=== PATIENT | female | born 1940 | race Caucasian/White ===

== ENCOUNTER 2016-11-24 08:41 | Day surgery (SDC) | payer MEDICARE, MEDICAID ==
[~2016-11-24] VITALS: Ht 162.6 cm; Wt 53.0 kg
--- NOTE | 2016-11-24 07:44 | PCM.HPANE ---
Patient Data Surgeon Admitting Provider: Attending Provider:Tomas Metz MD Primary Care Physician:Cata Muhammad Other Provider:Sea Drummond Anesthesia Reason for Visit Screening, Chronic Viral Hepatitis C Ht/WT & BMI Body Mass Index Allergies Coded Allergies: codeine (Verified Allergy, Intermediate, Nausea,Vomiting, 11/23/16) Past Anesthesia History Anesthesia History: Positive for:: Abnormal Airway (radiation to larynx 2004; not symptomatic nw) Diabetes History Hx Diabetes?: No MRSA MRSA: No Medications Hypertension Medication: No Home Meds Incl Beta Alfred: No Reported Medications Quetiapine Fumarate 100 Mg Lylaov440 Mg PO HS Ref 0 11/23/16 Levothyroxine 75 Mcg Yluody07 Mcg PO DAILY Ref 0 11/23/16 Salsalate 500 Mg Lhgrko203 Mg PO PM 1-2 tablets 02/07/14 [ProAir HFA] No Conflict Check90 Mcg INH as directed by physician 02/07/14 Nabumetone 750 Mg Kayvhb269 Mg PO BID 02/07/14 Gabapentin 400 Mg Kshhogc960 Mg PO HS 02/07/14 Clonazepam 0.5 Mg Tab0.5 Mg PO BID PRN For Anxiety 02/07/14 Cilostazol 100 Mg Pinvkw533 Mg PO BID 30 Days 1/2hr before or 2 hr after breakfast and dinner 02/07/14 [Atrovent HFA] No Conflict Check17 Mcg INH 02/07/14 Amlodipine 5 Mg Tablet5 Mg PO DAILY 02/07/14 Discontinued Reported Medications Spironolactone 25 Mg Zrmlfo45 Mg PO DAILY #30 TABLET Ref 0 11/23/16 Furosemide 40 Mg Vsyyau11 Mg PO DAILY 11/23/16 Multivits-Min/FA/Lycopene/Lut (Centrum Silver Tablet)1 Each Tablet1 Each PO DAILY 02/07/14 Simvastatin 20 Mg Dxjerw59 Mg PO HS 30 Days Ref 0 02/07/14 Esomeprazole Magnesium (Nexium)40 Mg Capsule.dr40 Mg PO DAILY 02/07/14 History History of ENT Problems?: No HEENT History: Positive for:: Abnormal Airway Cataracts (SURGERY BOTH EYES) Denies:: Difficult Intubation Hx of Heart Problems?: Yes Cardiovascular History: Positive for:: Hypertension Hx of Respiratory Problem?: Yes Respiratory History: Positive for:: COPD (USES INHALERS) Hx Neurologic Problems?: Yes Neurological History: Positive for:: CVA (TIA'S) Hx of GI Problems?: Yes Gastrointestinal History: Positive for:: Gastroesphageal Reflux Hx of Problems?: Yes Genitourinary History: Positive for:: Urinary Tract Infection Hx Musculoskeletal Problems?: Yes Hx of Psycho/Social Problems?: Yes Psycho Social History: Positive for:: Anxiety Hx Surgeries?: Yes (LEFT UPPER LOBE LOBECTOMY) Hx Any Other Health Problems?: Yes Other History: Positive for:: Cancer (LARYNX, WITH CHEMOTHERAPY AND RADIATION) History Blood Transfusions: Denies:: Blood Transfusions Hx Alcohol Use: NoHave You Smoked inLast 12 mo: Yes Stop/Bang Treated for Sleep Apnea?: No Do You Have a CPAP Machine?: No Risk Assessment Category Category 1A: Patient has history of documented sleep apnea, and HAS NOT received any narcotic, sedative or anesthesia administration during this stay. Category 1B: Patient has history of documented sleep apnea, and HAS received any narcotic , sedative or anesthesia administration during this stay Category 2: Patient has SUSPECTED Obstructive Sleep Apnea, and HAS received any narcotic , sedative or anesthesia administration during this stay. Category 3: Patient has SUSPECTED Obstructive Sleep Apnea and HAS NOT received narcotic, sedative or anesthesia administration during this stay. Category 4: Outpatient in Procedural Areas with known sleep apnea or who screen positive for High Risk via the STOP/BANG questionnaire. Exam Exam General Appearance: Alert, Oriented X3, Cooperative, No Acute Distress HEENT/AIRWAY: MP 2 Lungs: Clear to Auscultation, Normal Air Movement Heart: Exam Unremarkable, Regular Rate/Rhythm, No Murmurs/Rubs/Gallops Plan Impression Patient chart reviewed, patient interviewed and anesthestic plan with risks, benefits, and alternatives discussed, and informed consent obtained. ASA Physical Status: ASA3 Severe Disease Anesthetic Plan: MAC Bene/Risks/Altern/Consents: Yes HP Complete Prior to Induction: Yes Abbe Gutierrez MD Nov 24, 2016 07:44
[~2016-11-24 08:41] MED LIST: AMLO5TAB2 PO; ATROVENT INH; CILO100T2 PO; ESOM40CA41 PO; FURO40TA4 PO; GABA-504 PO; KLO5T PO; LEVO75TA4 PO; Lactated Ringer's 1,000 ML IV ONE; MULT-1073 PO; NABU750T PO; ProAir HFA INH; QUET100T69 PO; SIMV20TA4 PO; SPIR25TA3 PO; [UNRECOGNIZED DRUG - CODE] PO
[2016-11-24] MEDS ORDERED: fentaNYL-PF 50 mCg/mL 2 mL Inj ONE (08:42)
[2016-11-24] MEDS ORDERED: Dexamethasone 4 mg/mL Inj ONE (08:42)
[2016-11-24] MEDS ORDERED: Propofol 10,000 mCg/mL 20 mL Inj ONE (08:42)
[2016-11-24] MEDS ORDERED: Ondansetron 2 mg/mL 2 mL Inj ONE (08:42)
[2016-11-24] MEDS ORDERED: Ketamine 10 mg/mL 20 mL Inj ONE (08:42)
[2016-11-24 09:05] VITALS: BP 139/83; PULSE 61; RESP 16; O2SAT 98
[2016-11-24] MEDS ORDERED: Lactated Ringer's 1,000 ML IV SCH (09:37)
[2016-11-24] MEDS ORDERED: MetoCLOpramide 5 mg/mL 2 mL Inj IVPUSH PRN (09:40)
[2016-11-24] MEDS ORDERED: Ondansetron 2 mg/mL 2 mL Inj IVPUSH PRN (09:40)
[2016-11-24 10:33] VITALS: BP 104/59; PULSE 62; RESP 16; O2SAT 95
[2016-11-24 10:43] VITALS: BP 115/68; PULSE 63; RESP 16; O2SAT 93
[2016-11-24 10:53] VITALS: BP 137/82; PULSE 67; RESP 16; O2SAT 98
--- NOTE | 2016-11-24 13:06 | PCM.ANEP1 ---
Post Anesthesia Phase 1 PACU Phase 1 Assessment Vital Signs Vital Signs Date Time Temp Pulse Resp B/P Pulse Ox O2 Delivery O2 Flow Rate FiO2 11/24/16 10:53 67 16 137/82 98 Room Air 11/24/16 10:43 63 16 115/68 93 Room Air 11/24/16 10:33 62 16 104/59 95 Room Air 11/24/16 09:05 36.1 61 16 139/83 98 Room Air Anesthetic Administered: MAC Level of Alertness: Awake, talking WYMAN's with Equal Strength: Yes Pain: No Nausea or Vomiting: No Oxygen Delivery: Nasal Cannula Lungs: Clear to Auscultation, Normal Air Movement Dermatome Level: Full Sensation Abbe Gutierrez MD Nov 24, 2016 13:06
--- NOTE | 2016-11-24 13:12 | PCM.ANEP2 ---
Post Anesthesia Evaluation ASA/CMS Post Anesthesia VS in Patient's Normal Range?: Yes Resp Stable; Airway Patent?: Yes CV Function & Hydration Stable: Yes Mental Status Recovered?: Yes Pain control Satisfactory?: Yes N/V Control Satisfactory?: Yes Abbe Gutierrez MD Nov 24, 2016 13:12
--- NOTE | 2016-11-24 15:01 | ENDO ---
[address] [address] ENDOSCOPY PROCEDURE PATIENT: NICOLLE TRUJILLO : 1940 MR#: [id number] ADMIT: 11/24/2016 JOB ID: [id number] PRIMARY PROVIDER: Cata Muhammad PA-C PROCEDURE: Esophagogastroduodenoscopy with biopsy and a colonoscopy with cold forceps polypectomy and biopsy. INDICATIONS: A 76-year-old female with cirrhosis, who reports for variceal screening. She also reports for colon cancer screening. EQUIPMENT: GIF-H180 and a PCF-H190L. SEDATION: Monitored anesthesia as provided by Dr. Abbe Gutierrez. COMPLICATIONS: None identified. BOWEL PREPARATION: Fair. Adequate exam. PROCEDURE INFORMATION: After the risks and benefits were explained, written and verbal informed consent was obtained, the patient was brought into the endoscopy suite and placed into the left lateral decubitus position. Sedation was achieved using the above-stated medications with the addition of oxygen via nasal cannula. The scope was introduced into the mouth through the bite block and advanced to the second portion of the duodenum. The scope was slowly withdrawn to carefully examine the mucosa for any defects or lesions. Retroflexed views were accomplished in the stomach, and the stomach was decompressed. The scope removed from the patient who tolerated the procedure well. The patient was then turned around. A digital rectal examination accomplished. Moderate internal hemorrhoids were noted. The scope was then introduced into the rectum and advanced under direct visualization to the cecum as identified by the appendiceal orifice and ileocecal valve. The scope was slowly withdrawn to carefully examine the mucosa for any defects or lesions. Retroflexed views were avoided in the rectum. Multiple direct views were made through the dentate line for exclusion of pathology. The colon was decompressed. The scope removed from the patient who tolerated the procedure well. FINDINGS: 1. Duodenum: No pathology from the bulb through to the second portion. 2. Stomach: The patient had no mass lesions. No outlet obstruction. Moderate diffuse portal hypertensive gastropathy, but additionally, there were some scattered mild erosive and inflammatory features identified. I therefore took a couple of superficial biopsies for exclusion of Helicobacter or any other underlying histopathology. Retroflexed views of the LES disclosed a small sliding hiatal hernia. No gastric varices identified. 3. Esophagus: The squamocolumnar junction correlated with the top of the gastric folds. No acute erosive changes. No strictures. No mass lesions. In the 3 o'clock column, there was perhaps grade 1 varices seen distally without any high-risk areas or stigmata of recent bleeding. 4. Colon: In the right colon, there were three polyps, very small, removed. The largest was perhaps 4 mm. Cold forceps were employed. One of these was in the cecum and two in the region of the ascending colon. The patient had moderate internal hemorrhoids. There was one small polypoid lesion right at the dentate line, if not a little distal to it in the anal rectum. Was not sure if this was simply hyperplastic mucosa or other. We therefore took a small biopsy of this perhaps 5 mm polyp. There were no hemorrhagic complications. ENDOSCOPIC DIAGNOSIS: 1. Small sliding hiatal hernia. 2. Grade 1 distal esophageal varices. 3. Portal hypertensive and erosive gastropathy. 4. Colon polyps. 5. Hemorrhoids. 6. Anorectal small polyp. RECOMMENDATIONS: 1. Await histopathology. 2. Repeat EGD in two years with anesthesia. 3. If all polyps are confirmed adenomatous, repeat colonoscopy in three years. 4. However, if the polyp in the anal rectum demonstrates any concerning findings, then early surveillance for complete removal will be required in the next few months.
--- NOTE | 2016-11-25 11:12 | PATH ---
SURGICAL PATHOLOGY Attending Physician:Lela Simental CASE STATUS: Signed Out PATIENT NAME: NICOLLE TRUJILLO PID: [id number] : 1940 DATE COLLECTED:11/24/2016 18:14 SPECIMEN: 1: Gastric, Biopsy 2: Colon, Biopsy 3: Rectum, Biopsy CLINICAL HISTORY: 1). GASTRIC BIOPSY 2). COLON POLYPS X3 3). ANO-RECTUM BIOPSY FINAL DIAGNOSIS: 1.GASTRIC BIOPSIES: SUPERFICIAL FRAGMENTS OF GASTRIC MUCOSA OF PROBABLE ANTRAL ORIGIN. Negative for significant inflammation. Negative for evidence of Helicobacter. Negative for intestinal metaplasia. Negative for dysplasia and malignancy. 2.COLON POLYPS: TUBULAR ADENOMA INVOLVING ALL THREE BIOPSY FRAGMENTS. 3.ANO-RECTUM BIOPSY: SQUAMOUS EPITHELIUM CONSISTENT WITH ANAL ORIGIN WITH CHANGES OF LOW-GRADE SQUAMOUS INTRAEPITHELIAL LESION (AIN 1). NO COLON MUCOSA IDENTIFIED. ICD10 CODE D12.6 GROSS DESCRIPTION: The specimen is received in three formalin filled containers labeled with the patient's name. 1). The specimen is sublabeled "gastric" and consists of 2 portions of tissue which aggregate to 0.2 x 0.2 x 0.1 CM. The specimen is entirely submitted in cassette 1A. 2). The specimen is sublabeled "colon polyps x3" and consists of 3 portions of tissue which aggregate to 0.3 x 0.3 x 0.3 CM. The specimen is entirely submitted in cassette 2A. 3). The specimen is sublabeled "ano- rectum" and consists of a 0.2 x 0.2 x 0.2 CM portion of tissue which is entirely submitted in cassette 3A. 11/24/2016 DAC MICRO DESCRIPTION: See diagnosis. ICD-9 CODES: CPT CODES: 1: 66491 2: 37294 3: 04025 Electronically Signed Out Tomas Gardner MD [facility] [address], [place] [address] Technical component performed at [facility], [facility] [address], [place], [address]
[2016-12-31] MEDS ORDERED: LICO1POW MC (17:51)
[2016-12-31] MEDS ORDERED: MILK200C4 PO (17:51)
[2016-12-31] MEDS ORDERED: CICL34.6 TP (17:51)
[2016-12-31] MEDS ORDERED: METO25TA6 PO (17:51)
== END 2016-11-24 23:59 | disposition home or self-care (01) ==
LOC: END 08:41
PROVIDERS: ATTEND Internal Medicine Gastroenterology
DX: Z12.11 Encounter for screening for malignant neoplasm of colon (principal); D12.0 Benign neoplasm of cecum; D12.2 Benign neoplasm of ascending colon; K64.8 Other hemorrhoids; B18.2 Chronic viral hepatitis C; K74.60 Unspecified cirrhosis of liver; K44.9 Diaphragmatic hernia without obstruction or gangrene; I85.10 Secondary esophageal varices without bleeding; K76.6 Portal hypertension; K31.89 Other diseases of stomach and duodenum; F17.210 Nicotine dependence, cigarettes, uncomplicated; Z79.899 Other long term (current) drug therapy
CPT/HCPCS: 43239; 45380; 88305; J1100; J2250; J2405; J3010; J7120

== ENCOUNTER 2016-12-28 00:17 | Day surgery (SDC) | payer MEDICARE, MEDICAID ==
[~2016-12-28 00:17] MED LIST changes: -ESOM40CA41 PO; -FURO40TA4 PO; -Lactated Ringer's 1,000 ML IV ONE; -MULT-1073 PO; -SIMV20TA4 PO; -SPIR25TA3 PO
--- NOTE | 2016-12-28 16:38 | DRSVH ---
PROCEDURE: PHYSICIAN CONSULTATION COMPARISON: [facility], MR, ABDOMEN W&WO CONTRAST, 11/23/2016, 10:55. ID & CHIEF COMPLAINT: Ms. Bustamante is a 76-year-old patient with hepatitis C, cirrhosis, and a recent diagnosis of solitary hepatocellular carcinoma. HISTORY OF PRESENT ILLNESS: The patient presents to discuss locoregional therapy for her solitary les ion of hepatocellular carcinoma within the right lobe of liver. This patient has had long-standing he patitis C and liver cirrhosis. In December of 2015, the patient presented with ascites and what appeared to be multifocal hepatocellular carcinoma throughout the liver. In retrospect, the multiple hypodens e lesions within the liver may have represented regenerative nodules. She reportedly stopped drinking and recovered from her episode of liver failure. CT of the liver dated 10/05/16 demonstrated a hyperv ascular lesion within the right lobe of the liver. This was hyperdense on the following ultrasound, a nd on an MRI dated 11/23/16 was demonstrated to have the characteristic imaging appearance of a solita ry hepatocellular carcinoma. PAST MEDICAL HISTORY: Significant for hepatitis C and cirrhosis. PAST SURGICAL HISTORY: Noncontributory FAMILY HISTORY: The patient lives in [place]. Her daughter is involved in her care and she lives in [place]. SOCIAL HISTORY: The patient has a history of heavy drinking but quit in 2015 after her bout with live r failure. ALLERGIES: Codeine MEDICATIONS: Medication list on file (in PACS documents) and reviewed. FOCUSED PHYSICAL EXAM: Vital signs: Blood pressure: 161/75, heart rate: 78, respiratory rate: 18, oxygen saturation: 98% on room air, temperature: 36.6C IMAGING: MRI dated 11/23/16 demonstrates a solitary hypervascular lesion within hepatic segment VII. O f note, this lesion abuts a tertiary branch of the portal vein which measures approximately 3-4 mm in diameter. This demonstrates washout on the portal venous and delayed phase images. A hepatic hemangi tiffanie is also visualized within hepatic segment VIII. A bedside ultrasound was performed during the clinic in visit to confirm this lesion is accessible to percutaneous ablation. IMPRESSION: In summary, the patient is a pleasant 76-year-old woman with a solitary lesion consistent with hepato cellular carcinoma in the background of cirrhosis and hepatitis C. Today we discussed locoregional th erapies. Specifically, Y. 90 ablation, radiofrequency ablation, and chemoembolization. We also discus sed systemic chemotherapy versus watchful waiting. Given the focality of this lesion and the solitary nature, radiofrequency ablation is recommended. Bedside ultrasound confirmed access ability via perc utaneous approach. We also discussed the risks of this procedure including bleeding, infection, need for emergent procedure surgery, liver failure, and . All the patient's questions and her daughte r's questions have been answered, and the patient wishes to proceed. We will schedule her at her [facility] convenience. These findings were discussed with Dr. Tracey on 12/28/16. Thank you for this interesting consult. Dictated by: Nina Giudry M.D. on 12/28/2016 at 16:22 Approved by: Nina Guidry M.D. on 12/28/2016 at 16:36
[2016-12-31] MEDS ORDERED: METO25TA6 PO (17:51)
[2016-12-31] MEDS ORDERED: LICO1POW MC (17:51)
[2016-12-31] MEDS ORDERED: CICL34.6 TP (17:51)
[2016-12-31] MEDS ORDERED: MILK200C4 PO (17:51)
== END 2016-12-28 23:59 | disposition home or self-care (01) ==
LOC: SOUO 00:17
PROVIDERS: ATTEND Radiology Vascular & Interventional Radiology
DX: Z71.89 Other specified counseling (principal); C22.0 Liver cell carcinoma; B19.20 Unspecified viral hepatitis C without hepatic coma; K74.60 Unspecified cirrhosis of liver

== ENCOUNTER 2017-01-01 01:09 | Day surgery (SDC) | payer MEDICARE, MEDICAID ==
[2017-01-01] VITALS (12 sets, daily range): BP systolic 134–178; BP diastolic 58–89; PULSE 55–62; RESP 14–21; O2SAT 96
[~2017-01-01] VITALS: Ht 162.6 cm; Wt 53.0 kg
[~2017-01-01 01:09] MED LIST changes: -AMLO5TAB2 PO; +CICL34.6 TP; -CILO100T2 PO; -KLO5T PO; +LICO1POW MC; +METO25TA6 PO; +MILK200C4 PO; -NABU750T PO; -[UNRECOGNIZED DRUG - CODE] PO
[2017-01-01] MEDS ORDERED: Ondansetron 2 mg/mL 2 mL Inj ONE (01:10)
[2017-01-01] MEDS ORDERED: 0.9% NaCl + KCl 20 mEq/L 1,000 ML IV ONE (06:30)
[2017-01-01] MEDS ORDERED: CeFAZolin Inj 2,000 MG in Dextrose 5%-Pha MIX 50 ML IV SCH (06:30)
[2017-01-01] MEDS ORDERED: Ondansetron 2 mg/mL 2 mL Inj IVPUSH ONE (06:35)
[2017-01-01 06:50] LABS: BASOPHILS % (AUTO) 0.6 % (0-3); EOSINOPHILS % (AUTO) 1.8 % (0-5); MONOCYTES % (AUTO) 10.4 % (4-12); Mean Corpuscular Hemoglobin 29.9 pg (27.0-35.0); Mean Corpuscular Volume 89.3 fL (81-100); NEUTROPHILS % (AUTO) 61.8 % (40-74); Platelet Count 126 bil/L (150-400)
[2017-01-01 07:07] LABS: INR 1.13 ratio
[2017-01-01] MEDS ORDERED: Heparin 5,000 Units/500 mL NS Premix IV ONE ×2 (07:31→10:12)
[2017-01-01] MEDS ORDERED: 0.9% Sodium Chloride 1,000 ML ONE (07:32)
[2017-01-01] MEDS ORDERED: Heparin 1,000 Unit/mL 10 mL Inj ONE (07:32)
[2017-01-01] MEDS ORDERED: 0.9% Sodium Chloride 0 ML ONE (07:34)
--- NOTE | 2017-01-01 08:51 | PCM.HPANE ---
Patient Data Surgeon Admitting Provider: Attending Provider:Nina Guidry MD Primary Care Physician:Cata Muhammad Other Provider: Reason for Visit Liver Ablation/Rfa Ht/WT & BMI Height (Feet): 5 Height (Inches): 4.00 Weight (Kilograms): 53.000 Body Mass Index 19.95 Allergies Coded Allergies: codeine (Verified Allergy, Intermediate, Nausea,Vomiting, 11/23/16) Past Anesthesia History Anesthesia History: Positive for:: Abnormal Airway, Denies:: Anesthesia Reactions, Difficult Intubation, Fam Anesthesia Reaction , Fam Malignant Hypertherm, Malignant Hyperthermia Diabetes History Hx Diabetes?: No MRSA MRSA: No Medications Reported Medications Milk Thistle Seed Extract (Milk Thistle)200 Mg Oqzdcws702 Mg PO BID 12/31/16 Licorice Root Extract (Licorice Root)1 Gm Gvdzkf943 Mg MC BID 12/31/16 Ciclopirox/Ure/Camph/Menth/Euc (Ciclodan 8% Kit)34.6 Ml Kfrplkvi71.6 Ml TP DAILY 12/31/16 Metoprolol Tartrate 25 Mg Nbxyyl46.5 Mg PO BID 30 Days Ref 0 12/31/16 Quetiapine Fumarate 100 Mg Ngxrhg67 Mg PO HS Ref 0 11/23/16 Levothyroxine 75 Mcg Fvlomv28 Mcg PO DAILY Ref 0 11/23/16 [ProAir HFA] No Conflict Check90 Mcg INH as directed by physician 02/07/14 Gabapentin 400 Mg Egurcct901 Mg PO TID 02/07/14 [Atrovent HFA] No Conflict Check17 Mcg INH 02/07/14 Discontinued Reported Medications Salsalate 500 Mg Vwffwo880 Mg PO PM 1-2 tablets 02/07/14 Nabumetone 750 Mg Xxocpx187 Mg PO BID 02/07/14 Clonazepam 0.5 Mg Tab0.5 Mg PO BID PRN For Anxiety 02/07/14 Cilostazol 100 Mg Rzlqlf370 Mg PO BID 30 Days 1/2hr before or 2 hr after breakfast and dinner 02/07/14 Amlodipine 5 Mg Tablet5 Mg PO DAILY 02/07/14 History History of ENT Problems?: No HEENT History: Positive for:: Abnormal Airway Cataracts (SURGERY BOTH EYES) Dysphagia Hearing Problem (hard of hearing) Denies:: Difficult Intubation Denture Type: Full- Upper Full- Lower Teeth Condition: No Teeth Hx of Heart Problems?: No Cardiovascular History: Positive for:: Hypertension Denies:: AICD Atrial Fibrillation Chest Pain Pacemaker Other History/Comments ROS currently negative Hx of Respiratory Problem?: Yes Respiratory History: Positive for:: Asthma (copd) COPD Cough Pneumonia Denies:: Hemoptysis Tuberculosis Other History/Comment Breathing at baseline, with known COPD and asthma, Daily inhalors, with rare rescue inhalors Hx Neurologic Problems?: Yes Neurological History: Positive for:: CVA (TIA x2) Denies:: Dementia Other History/Comments TIA's (sx "dizzy", last 10 years ago) Hx of GI Problems?: Yes Gastrointestinal History: Positive for:: Liver Disease Other History/Comment Known liver mass here today for ablation; hepatitis C Hx of Problems?: Yes Genitourinary History: Positive for:: Urinary Tract Infection Female Hx: Denies:: Currently Endometriosis Pelvic Inflammatory Problems with Breasts? Hx Musculoskeletal Problems?: Yes Musculoskeletal History: Denies:: Joint Replacement Hx of Psycho/Social Problems?: Yes Psycho Social History: Positive for:: Anxiety Hx Depression Hx Surgeries?: Yes (lobectomy L lung, larynx, oophrectomy,) Hx Any Other Health Problems?: Yes Other History: Positive for:: Cancer (LARYNX, WITH CHEMOTHERAPY AND RADIATION and lobeectomy) History Blood Transfusions: Positive for:: Accept Blood Products? Denies:: Blood Transfuse Reaction Blood Transfusions Hx Diabetes: No Hx Alcohol Use: NoHx Substance Use: NoHave You Smoked inLast 12 mo: Yes Approx How Many Cigarettes/day: 1/2 pack a day Stop/Bang Treated for Sleep Apnea?: No Do You Have a CPAP Machine?: No Risk Assessment Category Category 1A: Patient has history of documented sleep apnea, and HAS NOT received any narcotic, sedative or anesthesia administration during this stay. Category 1B: Patient has history of documented sleep apnea, and HAS received any narcotic , sedative or anesthesia administration during this stay Category 2: Patient has SUSPECTED Obstructive Sleep Apnea, and HAS received any narcotic , sedative or anesthesia administration during this stay. Category 3: Patient has SUSPECTED Obstructive Sleep Apnea and HAS NOT received narcotic, sedative or anesthesia administration during this stay. Category 4: Outpatient in Procedural Areas with known sleep apnea or who screen positive for High Risk via the STOP/BANG questionnaire. Exam Exam Vital Signs Vital Signs Date Time Temp Pulse Resp B/P Pulse Ox O2 Delivery O2 Flow Rate FiO2 01/01/17 07:10 36.7 60 14 147/78 96 Room Air General Appearance: Alert, Oriented X3, Cooperative HEENT/AIRWAY: MP 2 Lungs: Clear to Auscultation, Diminished Heart: Exam Unremarkable Meds/Labs/Diagnostics Labs Test 01/01/17 06:47 White Blood Count 3.4th/mm3 (3.8-10.1) Red Blood Count 4.48mil/mm3 (3.90-5.20) Hemoglobin 13.4g/dL (12.0-15.6) Hematocrit 40.0% (35.0-46.0) Mean Corpuscular Volume 89.3fL (81-100) Mean Corpuscular Hemoglobin 29.9pg (27.0-35.0) Mean Corpuscular Hemoglobin Concent 33.5% (32.0-37.0) Red Cell Distribution Width 15.9% (12.3-15.4) Platelet Count 126bil/L (150-400) Neutrophils (%) (Auto) 61.8% (40-74) Lymphocytes (%) (Auto) 25.4% (14-46) Monocytes (%) (Auto) 10.4% (4-12) Eosinophils (%) (Auto) 1.8% (0-5) Basophils (%) (Auto) 0.6% (0-3) Prothrombin Time 12.1sec (8.1-12.5) Prothromb Time International Ratio 1.13ratio Activated Partial Thromboplast Time 27.1sec (22.8-33.0) Sodium Level 137mEq/L (134-144) Potassium Level 4.4mEq/L (3.5-5.2) Chloride Level 101mEq/L (97-108) Carbon Dioxide Level 25mmol/L (18-29) Blood Urea Nitrogen 20mg/dL (8-27) Creatinine 0.73mg/dL (0.57-1.00) Estimat Glomerular Filtration Rate 112mL/min (>59) Glucose Level 95mg/dL (60-99) Calcium Level 9.5mg/dL (8.5-10.1) Plan Impression Patient chart reviewed, patient interviewed and anesthestic plan with risks, benefits, and alternatives discussed, and informed consent obtained. ASA Physical Status: ASA4 Life Threatening Anesthetic Plan: GA Bene/Risks/Altern/Consents: Yes HP Complete Prior to Induction: Yes Brian Mcdaniels MD Jan 01, 2017 08:51
[2017-01-01] MEDS ORDERED: Lactated Ringer's 1,000 ML IV SCH (08:52)
[2017-01-01] MEDS ORDERED: Lactated Ringer's 500 ML IV PRN (08:52)
[2017-01-01] MEDS ORDERED: fentaNYL-PF 50 mCg/mL 2 mL Inj IVPUSH PRN ×2 (08:55→12:25)
[2017-01-01] MEDS ORDERED: HYDROmorphone 1 mg/mL Inj IVPUSH PRN (08:55)
[2017-01-01] MEDS ORDERED: EPHEDrine Sulfate 50 mg/mL Inj IVPUSH PRN (08:55)
[2017-01-01] MEDS ORDERED: Dexamethasone 4 mg/mL Inj IVPUSH PRN (08:55)
[2017-01-01] MEDS ORDERED: MetoCLOpramide 5 mg/mL 2 mL Inj IVPUSH PRN (08:55)
[2017-01-01] MEDS ORDERED: Ondansetron 2 mg/mL 2 mL Inj IVPUSH PRN (08:55)
[2017-01-01] MEDS ORDERED: Phenylephrine 10,000 mCg/mL Inj IVPUSH PRN (08:55)
[2017-01-01] MEDS ORDERED: CeFAZolin Inj 1 GM in IV Premix 1 EACH IV ONE (09:56)
[2017-01-01] MEDS ORDERED: fentaNYL-PF 50 mCg/mL 2 mL Inj ONE ×2 (10:21→11:06)
--- NOTE | 2017-01-01 11:27 | PCM.ANEP1 ---
Post Anesthesia Phase 1 PACU Phase 1 Assessment Vital Signs Vital Signs Date Time Temp Pulse Resp B/P Pulse Ox O2 Delivery O2 Flow Rate FiO2 01/01/17 07:10 36.7 60 14 147/78 96 Room Air Anesthetic Administered: GA Level of Alertness: Sleepy, easy to arouse WYMAN's with Equal Strength: No Pain: No Nausea or Vomiting: No Cardiovascular Function and Hy: Yes Oxygen Delivery: Room Air Lungs: Clear to Auscultation, Diminished Dermatome Level: Full Sensation Complications: No Brian Mcdaniels MD Jan 01, 2017 11:27
[2017-01-01] MEDS ORDERED: oxyCODONE-Acetamin 5-325 mg Tablet PO PRN (14:00)
--- NOTE | 2017-01-01 15:01 | DRSVH ---
PROCEDURE: CT ABDOMEN WITH CONTRAST ([id number]) INDICATIONS: POST BIOPSY TECHNIQUE: After the administration of intravenous contrast, 5 mm thick sections acquired from the diaphragm to the iliac crests. 5 mm coronal and sagittal reformats were performed. For radiation dose reduction, the following was used: automated exposure control, adjustment of mA and/or kV according to patient size. COMPARISON: [facility], CT, ABDOMEN W AND WO PELVIS W, 10/04/2009, 10:12. FINDINGS: Image quality: Excellent. Lung bases: Lung bases are clear. Heart size is normal. Solid organs: The spleen measures 13.8 cm in length. The liver is diffusely hypodense and demonstrate s surface nodularity. A transient hepatic attenuation difference is present within hepatic segment V. An ablation tract is visualized within this segment extending into hepatic segment VII. There is a c entral area of necrosis surrounded by a rim of hyperemia. A small amount of low-density fluid is pres ent within the ablation tract. Trace perihepatic fluid is present at the inferior margin of the liver . No other perihepatic fluid. No biliary ductal dilatation. Multiple subcentimeter calcified stones a re present within the gallbladder fundus. Pancreas enhances normally. No adrenal nodules. Kidneys d emonstrate normal size and enhancement, without hydronephrosis. Peritoneum and bowel: Bowel loops demonstrate normal wall thickness and caliber. No free fluid or a ir. Nodes and vessels: No retroperitoneal or mesenteric adenopathy by size criteria. There is fusiform d ilatation of the aorta measuring up to 3.8 cm diameter. Circumferential atheromatous calcifications a re present as well as mural thrombus. Miscellaneous: No ventral hernias. IMPRESSION: 1. Expected appearance of a radiofrequency ablation within hepatic segment VII. No finding to suggest active extravasation. 2. Fusiform abdominal aortic aneurysm. 3. Cholelithiasis. 4. Splenomegaly and cirrhosis. Dictated by: Nina Guidry M.D. on 01/01/2017 at 14:53 Approved by: Nina Guidry M.D. on 01/01/2017 at 14:59
--- NOTE | 2017-01-01 15:18 | NUR ---
liver mass ablation/discharge Pt discharged to home with family post stable recovery of liver mass RFA ablation. Pt c/o some abdominal pain throughout recovery that responds well to prn pain medication. At time of discharge patient stated verbal understanding of discharge instructions regarding changes to medications, signs fo worsening condition and follow up appointments.
--- NOTE | 2017-01-01 16:17 | DRSVH ---
PROCEDURE: US GUIDE FOR RADIOFREQUENCY ABLATION INDICATIONS: PERCUTANEOUS ACCESS TO LIVER MASS FOR RFA COMPARISON: None. Technique: 1. Ultrasound guided radiofrequency ablation of a solitary right hepatic liver mass. The indications, alternatives, benefits, risks, and complications of the procedure were explained to the patient. Informed written consent was obtained and placed in the chart. The patient was brought to the angiography suite. Gen. anesthesia was provided by the anesthesiology. Maximum sterile barrier technique was employed per standard protocol, including hand hygiene, cap, ma sk, sterile gown and gloves, and 2% chlorhexidine. Sterile ultrasound probe cover was also utilized. 1% lidocaine was used to anesthetize the skin over the area of interest. Under ultrasound guidance, the radiofrequency ablation probe was advanced with the tip at the distal aspect of the mass. Radiof requency ablation was performed lasting approximately 5 minutes. As the probe was removed the tract w as ablated. FINDINGS: Initial ultrasound demonstrates a circumscribed hypoechoic lesion within the right hepatic lobe. Final ultrasound images demonstrate echogenic changes associated with ablation within the lesi on and the cauterized tract. IMPRESSION: Status post radiofrequency ablation of a solitary 2 cm diameter right hepatic lesion. Dictated by: Nina Guidry M.D. on 01/01/2017 at 16:12 Approved by: Nina Guidry M.D. on 01/01/2017 at 16:15
== END 2017-01-01 23:59 | disposition home or self-care (01) ==
LOC: SOUO 01:09
PROVIDERS: ATTEND Radiology Vascular & Interventional Radiology
PROC: 0F513ZZ Destruction of Right Lobe Liver, Percutaneous Approach (ICD-10-PCS; principal; 2017-01-01)
DX: C22.0 Liver cell carcinoma (principal); K74.60 Unspecified cirrhosis of liver; K73.9 Chronic hepatitis, unspecified; B18.2 Chronic viral hepatitis C; I10 Essential (primary) hypertension; J43.9 Emphysema, unspecified; J45.909 Unspecified asthma, uncomplicated; Z86.73 Personal history of transient ischemic attack (TIA), and cerebral infarction without residual deficits; F17.210 Nicotine dependence, cigarettes, uncomplicated; Z87.898 Personal history of other specified conditions
CPT/HCPCS: 36415; 47382; 74160; 76940; 80048; 85014; 85025; 85610; 85730; J0690; J1644; J2405; J3010; J7030; Q9967